=== PATIENT | female | born 1950 | race Caucasian/White ===

== ENCOUNTER 2017-03-25 13:18 | Emergency (ER) | payer MEDICARE, OTHER ==
[~2017-03-25] VITALS: Ht 157.5 cm; Wt 67.1 kg
[~2017-03-25 13:18] MED LIST: ASPI81CH PO; CLON1; CLON2 PO; CLOP75 PO; D3-5050000 UNIT PO; GLIM4 PO; HYDPAM50 PO; HYDR1TAB94 PO; Inderal60 MG; LISI20 PO; LITH450ER; METO25ER PO; NAPR500; Percocet 5-3251 EACH PO; RANI150; SIMV40 PO; Seroquel200 MG PO; THYR60 PO; TRAM50; [UNRECOGNIZED DRUG - REMARK]; [UNRECOGNIZED DRUG - REMARK]; [UNRECOGNIZED DRUG - REMARK]
== END 2017-03-25 13:48 | disposition home or self-care (01) ==
LOC: ER 13:18
DX: S00.06XA Insect bite (nonvenomous) of scalp, initial encounter (principal); W57.XXXA Bitten or stung by nonvenomous insect and other nonvenomous arthropods, initial encounter
CPT/HCPCS: 99282

== ENCOUNTER → 2018-01-06 | Outpatient (CLI) | payer MEDICARE, OTHER ==
[2018-01-06 14:19] LABS: BASOPHILS ABSOLUTE AUTO 0.06 K/mm3 (0.00-0.23); BASOPHILS PERCENT AUTO 1 % (0-2); EOSINOPHILS ABSOLUTE AUTO 0.29 K/mm3 (0.00-0.68); EOSINOPHILS PERCENT AUTO 4 % (0-6); Hemoglobin 13.3 g/dL (11.5-16.0); IMMATURE GRAN ABSOLUTE AUTO 0.02 K/mm3 (0.00-0.10); IMMATURE GRAN PERCENT AUTO 0 % (0-1); LYMPHOCYTES ABSOLUTE AUTO 2.58 K/mm3 (0.84-5.20); LYMPHOCYTES PERCENT AUTO 38 % (21-46); MONOCYTES ABSOLUTE AUTO 0.41 K/mm3 (0.16-1.47); MONOCYTES PERCENT AUTO 6 % (4-13); Mean Corpuscular HGB 31.1 pg (26.0-34.0); Mean Corpuscular HGB Conc 33.3 g/dL (31.5-36.5); Mean Corpuscular Volume 94 fL (80-100); Mean Platelet Volume 11.4 fL (9.1-12.4); NEUTROPHILS ABSOLUTE AUTO 3.52 K/mm3 (1.96-9.15); NEUTROPHILS PERCENT AUTO 51 % (41-73); Platelet Count 175 K/mm3 (150-400); RDW Coefficient Variation 12.9 % (11.7-14.2); RDW Standard Deviation 43.8 fL (35.1-46.3); Red Blood Cell Count 4.28 M/mm3 (3.80-5.20); White Blood Cell Count 6.88 K/mm3 (4.00-11.30)
[2018-01-06 15:30] LABS: Albumin, Blood 3.9 g/dL (3.4-5.0); Albumin/Globulin Ratio 1.2 (0.8-1.8); Bilirubin, Total 0.2 mg/dL (0.1-1.0); Bun/Creatinine Ratio 15.2 (12.0-20.0); Calcium, Blood 9.3 mg/dL (8.5-10.1); Creatinine, Blood 1.25 mg/dL (0.40-1.00); Globulin, Blood 3.2 g/dL (2.2-4.0); Potassium, Blood 4.2 mmol/L (3.5-5.5); Total Protein, Blood 7.1 g/dL (6.4-8.2)
[2018-01-06 16:38] LABS: Source, Urine Clean Catch
[2018-01-06 17:31] LABS: Bacteria Mod /hpf; Red Blood Cells, Urine 0-2 /hpf (0-2); Squamous Epithelial Cells Rare /hpf (Few); White Blood Cells, Urine Rare /hpf (0-5)
== END | disposition home or self-care (01) ==
LOC: LAB EV 14:14 → LAB SHORT 14:14
PROVIDERS: Physician Assistant
DX: Z09 Encounter for follow-up examination after completed treatment for conditions other than malignant neoplasm (principal); Z87.448 Personal history of other diseases of urinary system
CPT/HCPCS: 80053; 81015; 85025

== ENCOUNTER 2019-04-25 15:41 | Emergency (ER) | payer MEDICARE, OTHER ==
[~2019-04-25] VITALS: Ht 157.5 cm; Wt 64.0 kg
[~2019-04-25 15:41] MED LIST changes: -D3-5050000 UNIT PO; +VITAMIN D31000 UNI1 PO
[2019-04-25 16:46] LABS: BASOPHILS ABSOLUTE AUTO 0.05 K/mm3 (0.00-0.23); BASOPHILS PERCENT AUTO 1 % (0-2); EOSINOPHILS ABSOLUTE AUTO 0.33 K/mm3 (0.00-0.68); EOSINOPHILS PERCENT AUTO 4 % (0-6); Hemoglobin 14.2 g/dL (11.5-16.0); IMMATURE GRAN ABSOLUTE AUTO 0.02 K/mm3 (0.00-0.10); IMMATURE GRAN PERCENT AUTO 0 % (0-1); LYMPHOCYTES ABSOLUTE AUTO 2.37 K/mm3 (0.84-5.20); LYMPHOCYTES PERCENT AUTO 29 % (21-46); MONOCYTES ABSOLUTE AUTO 0.57 K/mm3 (0.16-1.47); MONOCYTES PERCENT AUTO 7 % (4-13); Mean Corpuscular HGB 30.1 pg (26.0-34.0); Mean Corpuscular HGB Conc 32.3 g/dL (31.5-36.5); Mean Corpuscular Volume 93 fL (80-100); Mean Platelet Volume 10.2 fL (9.1-12.4); NEUTROPHILS ABSOLUTE AUTO 4.75 K/mm3 (1.96-9.15); NEUTROPHILS PERCENT AUTO 59 % (41-73); Platelet Count 212 K/mm3 (150-400); RDW Coefficient Variation 12.4 % (11.7-14.2); Red Blood Cell Count 4.72 M/mm3 (3.80-5.20); White Blood Cell Count 8.09 K/mm3 (4.00-11.30)
[2019-04-25 17:14] LABS: Alanine Aminotransfer (ALT/SGP 35 U/L (12-78); Albumin/Globulin Ratio 1.1 (0.8-1.8); Alk Phos 95 U/L (50-136); Anion Gap 2 mmol/L (6-16); Aspartate Aminotrans (AST/SGOT 20 U/L (12-37); Bilirubin, Total 0.3 mg/dL (0.1-1.0); Blood Urea Nitrogen 18 mg/dL (8-24); Bun/Creatinine Ratio 26.4 (12.0-20.0); CO2, Blood 28 mmol/L (21-32); Calcium, Blood 9.5 mg/dL (8.5-10.1); Chloride, Blood 106 mmol/L (98-108); Creatinine, Blood 0.68 mg/dL (0.40-1.00); Globulin, Blood 3.8 g/dL (2.2-4.0); Glomerular Filtration Rate >60 (60-); Glucose, Blood 88 mg/dL (70-99); Potassium, Blood 4.4 mmol/L (3.5-5.5); Sodium, Blood 136 mmol/L (136-145); Total Protein, Blood 7.8 g/dL (6.4-8.2); Troponin I <0.015 ng/mL (0.000-0.040)
[2019-04-25] MEDS ORDERED: ATORVASTATIN CA80 M1 PO (20:29)
[2019-04-25] MEDS ORDERED: LISI5 PO (20:29)
[2019-04-25] MEDS ORDERED: DONEPEZIL HCL5 M2 PO (20:30)
[2019-04-25] MEDS ORDERED: DULOXETINE HCL30 M1 PO (20:31)
[2019-04-25] MEDS ORDERED: SYNTHROID75 MCG PO (20:31)
[2019-04-25] MEDS ORDERED: Lamotrigine25 MG PO (20:31)
[2019-04-25] MEDS ORDERED: Glimepiride1 MG PO (20:32)
[2019-04-25] MEDS ORDERED: METOPROLOL TART25 MG PO (20:32)
== END 2019-04-25 22:38 | disposition home or self-care (01) ==
LOC: ER 15:41
PROVIDERS: Physician Assistant
DX: I10 Essential (primary) hypertension (principal); R10.9 Unspecified abdominal pain; E11.9 Type 2 diabetes mellitus without complications; F31.9 Bipolar disorder, unspecified; F17.210 Nicotine dependence, cigarettes, uncomplicated; Z88.5 Allergy status to narcotic agent; Z79.899 Other long term (current) drug therapy
CPT/HCPCS: 36415; 71046; 74177; 80053; 84484; 85025; 93005; 93010; 96361; 96374-59; 96375; 99284-25; J0360; J1170; J2405; J7120; Q9967

== ENCOUNTER 2019-05-22 09:09 | Day surgery (SDC) | payer MEDICARE, OTHER ==
[~2019-05-22] VITALS: Ht 160 cm; Wt 65.0 kg
[~2019-05-22 09:09] MED LIST changes: +ATORVASTATIN CA80 M1 PO; +Chantix1 MG PO; +Cymbalta20 MG PT; +DONEPEZIL HCL5 M2 PO; +DULOXETINE HCL30 M1 PO; +EUTHYROX100 MCG PO; +Glimepiride1 MG PO; +LAMICTAL XR25 MG PO; +LISI5 PO; +Lamotrigine25 MG PO; +METOPROLOL TART25 MG PO; +SYNTHROID75 MCG PO
--- NOTE | 2019-05-22 11:34 | NUR ---
PT RETURNED TO RECOVERY ROOM IN BED. RIGHT RADIAL TR BAND SITE SOFT NON-TENDER WITH NO HEMATOMA AND NO PULSATILE BLEEDING AND WRIST BOARD IN PLACE. PT DENIES CP. PT SITTING UP DRINKING WATER; PT DENIES CP; CALL LIGHT IN REACH.
[2019-05-22] MEDS ORDERED: Aspir 8181 MG PO (12:15)
--- NOTE | 2019-05-22 13:58 | NUR ---
11CC AIR REMOVED FROM R WRIST TR BAND. -BLEEDING OR SWELLING. PT UP TO BATHROOM /S DIFFICULTY.
--- NOTE | 2019-05-22 15:15 | NUR ---
DISCHARGE PT AMBULATES TO RESTROOM AND DRESSED SELF WITH NO COMPLICATIONS. TR BAND REMOVED, SITE CLEANED AND CLOTH DOT DRESSING APPLIED TO SITE. PT STATES HER UNDERSTANDING OF DISCHARGE AND SITE CARE INSTRUCTIONS AND DENIES ANY QUESTIONS OR CONCERNS. VSS. PT DENIES ANY PAIN. IV DCD WITH CATH IN TACT. PT TAKEN TO FRONT ENTERENCE VIA WHEELCHAIR BY RN.
== END 2019-05-22 15:15 | disposition home or self-care (01) ==
LOC: MHTC 09:09
DX: I25.10 Atherosclerotic heart disease of native coronary artery without angina pectoris (principal); E11.9 Type 2 diabetes mellitus without complications; I10 Essential (primary) hypertension; I25.2 Old myocardial infarction; Z79.899 Other long term (current) drug therapy; Z95.5 Presence of coronary angioplasty implant and graft; Z88.5 Allergy status to narcotic agent; Z87.891 Personal history of nicotine dependence; Z79.02 Long term (current) use of antithrombotics/antiplatelets
CPT/HCPCS: 76937; 82947; 85347; 92978; 93458; 99152; 99153; C1725; C1753; C1769; C1874; C1887; C1894; C9600; J1644; J2250; J3010; J7030; Q9967

== ENCOUNTER → 2020-05-11 | Outpatient (CLI) | payer MEDICARE, OTHER ==
[~2020-05-11] MED LIST changes: +Aspir 8181 MG PO
== END ==
LOC: LAB SHORT 08:22 → LAB 08:22
DX: L60.2 Onychogryphosis (principal); B35.1 Tinea unguium; Z88.5 Allergy status to narcotic agent
CPT/HCPCS: 88304; 88312

== ENCOUNTER → 2022-04-21 | Outpatient (CLI) | payer MEDICARE, OTHER | END | disposition home or self-care (01) | LOC: LAB SHORT 09:40 → LAB 09:40 | DX: K52.9 Noninfective gastroenteritis and colitis, unspecified (principal) | CPT/HCPCS: 82653 ==